=== PATIENT | female | born 1955 | race Caucasian/White ===

== ENCOUNTER 2019-05-15 02:16 | Observation (INO) | payer OTHER ==
[~2019-05-15] VITALS: Ht 144.8 cm; Wt 64.9 kg
[2019-05-15 02:23] VITALS: Ht 144.8 cm; Wt 64.9 kg
--- NOTE | 2019-05-15 02:50 | NUR ---
LAB DRAW COMPLETE
--- NOTE | 2019-05-15 02:59 | NUR ---
PCXR IN PROGRESS AT BEDSIDE
--- NOTE | 2019-05-15 03:01 | NUR ---
PT PRESENTS TO ED FOR EVAL OF PRESSURE-LIKE CHEST PAIN TO MIDSTERNAL AREA X3 WEEKS; PT STS WAS [place] [facility] [place] AND ADMITTED FOR LOW POTASSIUM AND LOW SODIUM AND HAS FELT THIS WAY EVER SINCE SHE WAS DISCHARGED. ON INITIAL CONTACT, PT AAOX4, GCS 15, PERRL, RESP E/U, LUNG SOUNDS CTA, S1 S2 AUSCULTATED, ABDOMEN SOFT/NONTENDER/NONDISTENDED. PT ENDORSES SOME L ARM SORENESS SINCE DISCHARGE FROM [facility]. SKIN W/D/I, PT MOVES ALL EXTREMITIES.
[2019-05-15 03:05] LABS: BASOPHIL % 0.4 % (0-2); PLATELET COUNT 338 x10^3mcL (130-400)
[2019-05-15 03:09] LABS: RED CELL DISTRIBUTION WIDTH 17.3 % (11.5-14.5)
[2019-05-15 03:19] LABS: ALBUMIN 3.5 g/dL (3.4-5.0); BILIRUBIN TOTAL 0.3 mg/dL (0.20-1.00); CALCIUM 8.2 mg/dL (8.5-10.1); CARBON DIOXIDE 28.6 mmol/L (21-32); CREATININE SERUM 1.3 mg/dL (0.6-1.0)
[2019-05-15 03:24] LABS: TOTAL PROTEIN, SERUM 8.5 g/dL (6.4-8.2)
[2019-05-15 03:26] LABS: POTASSIUM SERUM 2.6 mmol/L (3.5-5.1)
--- NOTE | 2019-05-15 03:55 | NUR ---
DR NAZARIO AT BEDSIDE DISCUSSING PLAN OF CARE
[2019-05-15 04:52] LABS: microscopic required? NO
[2019-05-15 05:13] LABS: UA SPECIFIC GRAVITY <=1.005 (1.005-1.035); urine erythrocyte NEGATIVE (NEGATIVE)
[2019-05-15] MEDS ORDERED: NATURE'S BLEND F1 MG PO (05:23)
[2019-05-15] MEDS ORDERED: GOOD SENSE OMEP20 MG PO (05:24)
[2019-05-15] MEDS ORDERED: ALLOPURINOL100 MG PO (05:25)
[2019-05-15] MEDS ORDERED: HYDROCHLOROTH12.5 M2 PO (05:25)
[2019-05-15] MEDS ORDERED: LEVOTHYROXIN0.075 M2 PO (05:26)
[2019-05-15] MEDS ORDERED: COLACE100 MG PO (05:26)
[2019-05-15] MEDS ORDERED: MONTELUKAST SOD10 M1 PO (05:27)
[2019-05-15] MEDS ORDERED: SEREVENT D0.046 MG/1 IH (05:28)
[2019-05-15] MEDS ORDERED: CLONIDINE HCL0.1 MG PO (05:30)
[2019-05-15] MEDS ORDERED: CEVIMELINE HCL30 MG PO (05:30)
[2019-05-15] MEDS ORDERED: RESTORIL30 MG PO (05:31)
[2019-05-15] MEDS ORDERED: XANAX0.5 MG PO (05:32)
[2019-05-15] MEDS ORDERED: DILTIAZEM HCL240 MG PO (05:32)
[2019-05-15] MEDS ORDERED: FLUTICASON0.05 MG/Ac NS (05:33)
[2019-05-15] MEDS ORDERED: BUSPIRONE HCL10 MG PO (05:33)
--- NOTE | 2019-05-15 06:15 | NUR ---
RECEIVED PT FROM ED VIA BED ACCOMPANIED BY NURSE. PT AAOX4, ABLE TO MAKE NEEDS KNOWN. DENIES CP/PRESSURE AT THIS TIME. DENIES ANY PAIN. IV SL TO LAC FLUSHING WELL. SITE FREE FROM REDNESS AND SWELLING.BED AT LOWEST SETTING. SIDE RAILS X2 UP. CALL LIGHT WITHING REACH. WILL ENDORSE CARE TO AM NURSE.
[2019-05-15 07:02] VITALS: BP 163/65
[2019-05-15 08:03] VITALS: BP 151/74
--- NOTE | 2019-05-15 08:04 | NUR ---
RECEIVED PATIENT FROM FRIDA ROGERS. PATIENT CURRENTLY IN BED WITH MILD COMPLAINTS OF [place]. DR MIXON IN TO SPEAK WITH PATIENT THIS AM ABOUT PLAN OF CARE. WILL CONTINUE TO MONITOR AND AWAIT FURTHER ORDERS FROM DR MIXON. CALL LIGHT IN REACH AT THIS TIME.
[2019-05-15 09:18] LABS: BASOPHIL % 0.8 % (0-2); PLATELET COUNT 320 x10^3mcL (130-400)
[2019-05-15 09:25] LABS: RED CELL DISTRIBUTION WIDTH 17.5 % (11.5-14.5)
[2019-05-15 09:39] LABS: ALBUMIN 3.5 g/dL (3.4-5.0); BILIRUBIN TOTAL 0.3 mg/dL (0.20-1.00); CALCIUM 8.4 mg/dL (8.5-10.1); CARBON DIOXIDE 27.3 mmol/L (21-32); CREATININE SERUM 1.1 mg/dL (0.6-1.0); MAGNESIUM 1.9 mg/dL (1.8-2.4); POTASSIUM SERUM 3.8 mmol/L (3.5-5.1); TOTAL PROTEIN, SERUM 8.2 g/dL (6.4-8.2)
--- NOTE | 2019-05-15 11:57 | NUR ---
DR VILLARREAL IN TO SPEAK WITH PATIENT ABOUT CONDITION. STATES THAT PATIENT SHOULD DISCONTINUE USAGE OF PO HCTZ AND TO FOLLOW UP WITH HIM IN TWO WEEKS. DR VILLARREAL STATES HE WILL SPEAK WITH DR MIXON. PATIENT UPDATED TO PLAN OF CARE, AGREES AND VERBALIZES UNDERSTANDING. WILL AWAIT FOR DR MIXON ORDERS FOR POSSIBLE DISCHARGE.
[2019-05-15 12:16] VITALS: BP 114/52
[2019-05-15 12:57] VITALS: BP 114/52
--- NOTE | 2019-05-15 13:47 | NUR ---
DISCHARGE INSTRUCTIONS GIVEN AND EXPLAINED TO PATIENT. DISCHARGE PACKET GIVEN TO PATIENT, ALL QUESTIONS ADDRESSED. IV CATHETER REMOVED AND INTACT. AIRCREWMAN RETURNED TO [facility]. SIGNATURES OBTAINED. PATIENT HAS NO COMPLAINTS AND AWAITING FAMILY TO ARRIVE TO BE ESCORTED DOWNSTAIRS.
[2019-05-15 13:52] VITALS: BP 114/52
== END 2019-05-15 14:28 | disposition home or self-care (01) | DRG 426 ==
LOC: ED 02:16 → DU 04:56
PROVIDERS: Emergency Medicine; ADMIT Internal Medicine Pulmonary Disease
DX: E87.1 Hypo-osmolality and hyponatremia (principal); I11.0 Hypertensive heart disease with heart failure; I50.9 Heart failure, unspecified; M34.9 Systemic sclerosis, unspecified; M35.00 Sjogren syndrome, unspecified; T50.2X5A Adverse effect of carbonic-anhydrase inhibitors, benzothiadiazides and other diuretics, initial encounter; I25.10 Atherosclerotic heart disease of native coronary artery without angina pectoris; J44.9 Chronic obstructive pulmonary disease, unspecified; M06.9 Rheumatoid arthritis, unspecified; E03.9 Hypothyroidism, unspecified; M81.0 Age-related osteoporosis without current pathological fracture; Z83.3 Family history of diabetes mellitus; Z68.30 Body mass index [BMI] 30.0-30.9, adult; Y92.009 Unspecified place in unspecified non-institutional (private) residence as the place of occurrence of the external cause
CPT/HCPCS: G0378; J2270; J2405; J3480; J3490; J7040; Q0092

== ENCOUNTER 2019-08-14 01:20 | Emergency (ER) | payer OTHER ==
[~2019-08-14] VITALS: Ht 149.9 cm; Wt 66.2 kg
[~2019-08-14 01:20] MED LIST: ALLOPURINOL100 MG PO; BUSPIRONE HCL10 MG PO; CEVIMELINE HCL30 MG PO; CLONIDINE HCL0.1 MG PO; COLACE100 MG PO; DILTIAZEM HCL240 MG PO; FLUTICASON0.05 MG/Ac NS; GOOD SENSE OMEP20 MG PO; HYDROCHLOROTH12.5 M2 PO; LEVOTHYROXIN0.075 M2 PO; MONTELUKAST SOD10 M1 PO; NATURE'S BLEND F1 MG PO; RESTORIL30 MG PO; SEREVENT D0.046 MG/1 IH; XANAX0.5 MG PO
[2019-08-14 01:26] VITALS: Ht 149.9 cm; Wt 66.2 kg
[2019-08-14 05:09] VITALS: BP 154/71
== END 2019-08-14 05:09 | disposition home or self-care (01) ==
LOC: ED 01:20
DX: S92.352A Displaced fracture of fifth metatarsal bone, left foot, initial encounter for closed fracture (principal); I11.0 Hypertensive heart disease with heart failure; I50.9 Heart failure, unspecified; J44.9 Chronic obstructive pulmonary disease, unspecified; E03.9 Hypothyroidism, unspecified; Z88.1 Allergy status to other antibiotic agents; X58.XXXA Exposure to other specified factors, initial encounter; Y93.89 Activity, other specified; Y92.89 Other specified places as the place of occurrence of the external cause; Y99.8 Other external cause status

== ENCOUNTER 2019-09-15 01:48 | Inpatient (IN) | payer OTHER ==
[~2019-09-15] VITALS: Ht 144.8 cm; Wt 66.3 kg
[2019-09-15 01:53] VITALS: Ht 144.8 cm; Wt 66.3 kg
[2019-09-15 02:41] LABS: PLATELET COUNT 358 x10^3mcL (130-400)
[2019-09-15 02:56] LABS: ALBUMIN 3.7 g/dL (3.4-5.0); BILIRUBIN TOTAL 0.46 mg/dL (0.20-1.00); CALCIUM 8.5 mg/dL (8.5-10.1); CARBON DIOXIDE 25.1 mmol/L (21-32); CREATININE SERUM 1.1 mg/dL (0.6-1.0); POTASSIUM SERUM 4.1 mmol/L (3.5-5.1)
[2019-09-15 02:58] LABS: BASOPHIL % 0 % (0-2); RED CELL DISTRIBUTION WIDTH 18.1 % (11.5-14.5)
[2019-09-15 03:02] LABS: TOTAL PROTEIN, SERUM 8.8 g/dL (6.4-8.2)
[2019-09-15 05:22] VITALS: BP 175/68
[2019-09-15 08:50] VITALS: BP 146/61
[2019-09-15 12:40] LABS: CALCIUM 8.3 mg/dL (8.5-10.1); CARBON DIOXIDE 27.4 mmol/L (21-32); CHLORIDE SERUM 86 mmol/L (98-107); CREATININE SERUM 0.9 mg/dL (0.6-1.0); GFR1 > 60 mL/min; GLUCOSE SERUM 88 mg/dL (74-106); POTASSIUM SERUM 3.6 mmol/L (3.5-5.1)
[2019-09-15 12:41] VITALS: BP 146/61
[2019-09-15 12:58] LABS: SODIUM SERUM 120 mmol/L (136-145)
[2019-09-15 13:08] VITALS: BP 148/57
[2019-09-15 17:15] VITALS: BP 141/63
[2019-09-15 19:39] LABS: CALCIUM 8.3 mg/dL (8.5-10.1); CARBON DIOXIDE 28.9 mmol/L (21-32); CHLORIDE SERUM 83 mmol/L (98-107); CREATININE SERUM 0.8 mg/dL (0.6-1.0); GFR1 > 60 mL/min; GLUCOSE SERUM 92 mg/dL (74-106); POTASSIUM SERUM 4.4 mmol/L (3.5-5.1)
[2019-09-15 19:49] LABS: SODIUM SERUM 117 mmol/L (136-145)
[2019-09-15 21:02] VITALS: BP 121/58
[2019-09-16 00:18] LABS: microscopic required? NO
[2019-09-16 00:25] LABS: UA SPECIFIC GRAVITY <=1.005 (1.005-1.035); urine erythrocyte NEGATIVE (NEGATIVE)
[2019-09-16 05:14] VITALS: BP 143/72
[2019-09-16 07:04] LABS: ALKALINE PHOSPHATASE 98 U/L (46-116); ALT/SGPT 24 U/L (14-59); AST/SGOT 25 U/L (15-37); BILIRUBIN TOTAL 0.3 mg/dL (0.20-1.00); CALCIUM 8.3 mg/dL (8.5-10.1); CARBON DIOXIDE 27.6 mmol/L (21-32); CHLORIDE SERUM 88 mmol/L (98-107); CREATININE SERUM 0.8 mg/dL (0.6-1.0); GFR1 > 60 mL/min; GLUCOSE SERUM 79 mg/dL (74-106); POTASSIUM SERUM 3.4 mmol/L (3.5-5.1)
[2019-09-16 07:10] LABS: FREE T4 1.01 ng/dL (0.76-1.46)
[2019-09-16 07:49] LABS: BASOPHIL % 0.8 % (0-2); PLATELET COUNT 307 x10^3mcL (130-400)
[2019-09-16 08:06] LABS: RED CELL DISTRIBUTION WIDTH 18.6 % (11.5-14.5)
[2019-09-16 08:12] LABS: ALBUMIN 3.3 g/dL (3.4-5.0); SODIUM SERUM 122 mmol/L (136-145)
[2019-09-16 08:47] VITALS: BP 113/54
[2019-09-16 13:14] VITALS: BP 115/49
[2019-09-16 17:37] VITALS: BP 135/55
[2019-09-16 21:28] VITALS: BP 126/58
[2019-09-17 05:13] VITALS: BP 129/69
[2019-09-17 06:59] LABS: BASOPHIL % 0.2 % (0-2); PLATELET COUNT 318 x10^3mcL (130-400)
[2019-09-17 07:12] LABS: CALCIUM 8.4 mg/dL (8.5-10.1); CARBON DIOXIDE 30.5 mmol/L (21-32); CREATININE SERUM 1.1 mg/dL (0.6-1.0); MAGNESIUM 1.9 mg/dL (1.8-2.4); POTASSIUM SERUM 3.5 mmol/L (3.5-5.1)
[2019-09-17 08:13] LABS: RED CELL DISTRIBUTION WIDTH 18.6 % (11.5-14.5)
[2019-09-17 08:45] VITALS: BP 152/72
[2019-09-17 12:38] VITALS: BP 150/73
[2019-09-17 17:40] VITALS: BP 150/73
[2019-09-17 17:57] VITALS: BP 149/71
== END 2019-09-17 18:29 | disposition home or self-care (01) | DRG 469 ==
LOC: ED 01:48 → DU 03:49
PROVIDERS: Emergency Medicine; Internal Medicine Pulmonary Disease; Specialist; ADMIT Internal Medicine Pulmonary Disease
DX: N17.9 Acute kidney failure, unspecified (principal); M34.9 Systemic sclerosis, unspecified; E87.1 Hypo-osmolality and hyponatremia; I11.0 Hypertensive heart disease with heart failure; I50.9 Heart failure, unspecified; M35.00 Sjogren syndrome, unspecified; E86.9 Volume depletion, unspecified; J44.9 Chronic obstructive pulmonary disease, unspecified; E03.9 Hypothyroidism, unspecified; M81.0 Age-related osteoporosis without current pathological fracture; M06.9 Rheumatoid arthritis, unspecified; D64.9 Anemia, unspecified; Z90.49 Acquired absence of other specified parts of digestive tract; Z88.1 Allergy status to other antibiotic agents; Z90.710 Acquired absence of both cervix and uterus; Z98.51 Tubal ligation status; Z79.899 Other long term (current) drug therapy
CPT/HCPCS: 84439; G0378; J1940; J2405; J3475; J7620; J7626; Q0092

== ENCOUNTER 2019-12-25 04:51 | Emergency (ER) | payer MEDICARE, OTHER ==
[~2019-12-25] VITALS: Ht 137.2 cm; Wt 72.7 kg
[2019-12-25 05:03] VITALS: Ht 137.2 cm; Wt 72.7 kg
[2019-12-25 06:16] LABS: BASOPHIL % 0.8 % (0-2); PLATELET COUNT 281 x10^3mcL (130-400)
[2019-12-25 06:17] LABS: RED CELL DISTRIBUTION WIDTH 18.9 % (11.5-14.5)
[2019-12-25 06:25] LABS: CALCIUM 8.7 mg/dL (8.5-10.1); CARBON DIOXIDE 25.4 mmol/L (21-32); POTASSIUM SERUM 3.7 mmol/L (3.5-5.1)
[2019-12-25 06:28] LABS: MAGNESIUM 1.8 mg/dL (1.8-2.4); PHOSPHOROUS 4.3 mg/dL (2.5-4.9)
[2019-12-25 07:06] LABS: AMPHETAMINE QUAL UR NONE DETECTED (See below)
[2019-12-25 09:41] VITALS: BP 138/78
== END 2019-12-25 09:41 | disposition home or self-care (01) ==
LOC: ED 04:51
PROVIDERS: Emergency Medicine
DX: E87.1 Hypo-osmolality and hyponatremia (principal); I11.0 Hypertensive heart disease with heart failure; I50.9 Heart failure, unspecified; E03.9 Hypothyroidism, unspecified; J44.9 Chronic obstructive pulmonary disease, unspecified; Z88.1 Allergy status to other antibiotic agents
CPT/HCPCS: J1200; J7030; Q0162